=== PATIENT | female | born 1985 | race American Indian/Alaskan Native ===

== ENCOUNTER 2016-03-31 12:46 | Inpatient (IN) | payer OTHER ==
[2016-03-31] MEDS ORDERED: CATAPRES PO ONE (13:39)
--- NOTE | 2016-03-31 13:41 | Emergency Department Report ---
Chief Complaint: Alcohol Stated Complaint: ALCOHOL POISONING Time Seen by Provider: 03/31/16 13:35 - HPI History of Present Illness: 31-year-old female comes in for complaint of nausea vomiting up blood, she reports throat pain and headache as well as abdominal pain. Patient was recently told she has hypertension about 6 months ago and has not been taking any medication for this. Evaluation triage showed her blood pressure 217/159. - Exam Vital Signs: Vital Signs 03/31/16 12:58 Temperature 98.4 F Pulse Rate 93 H Respiratory 20 Rate Blood Pressure 217/159 O2 Sat by Pulse 99 Oximetry MSE screening note: Focused history and physical exam performed. Due to findings the following was ordered: ED Disposition for MSE Condition: Stable
[2016-03-31 14:02] LABS: Eosinophils % (Auto) 0.5 % (0.0-4.3); Hematocrit 43.2 % (30.3-42.9); Hemoglobin 14.6 gm/dl (10.1-14.3); Mean Corpuscular HGB Conc 34 % (30-34); Mean Corpuscular Hemoglobin 30 pg (28-32); Mean Corpuscular Volume 87 fl (79-97); Platelet Count 356 K/mm3 (140-440); Red Blood Count 4.96 M/mm3 (3.65-5.03); Red Cell Distribution Width 14.1 % (13.2-15.2); White Blood Count 10.2 K/mm3 (4.5-11.0)
[2016-03-31 14:26] LABS: Alanine Aminotransferase 16 units/L (7-56); Alkaline Phosphatase 76 units/L (35-129); Anion Gap 18 mmol/L; Bilirubin,Direct < 0.2 mg/dL (0-0.2); Bilirubin,Indirect 0.5 mg/dL; Bilirubin,Total 0.7 mg/dL (0.1-1.2); Blood Urea Nitrogen 13 mg/dL (7-17); Calcium 8.7 mg/dL (8.4-10.2); Carbon Dioxide 26 mmol/L (22-30); Chloride 101.8 mmol/L (98-107); Glucose 126 mg/dL (65-100); Sodium 142 mmol/L (137-145); Total Protein 7.9 g/dL (6.3-8.2)
--- NOTE | 2016-03-31 15:58 | Ultrasound Report ---
RIGHT UPPER QUADRANT ULTRASOUND: The gallbladder is sonolucent with no evidence of stones, polyps or wall thickening. The common duct is normal in caliber. The pancreas, right renal contour, parenchyma and hepatic parenchyma appear normal. IMPRESSION: Normal right upper quadrant ultrasound.
[2016-03-31] MEDS ORDERED: PEPCID IV ONE (16:10)
[2016-03-31] MEDS ORDERED: NACL 0.9% 1000 ML 1,000 ML IV ONE ×2 (16:10→18:12)
[2016-03-31] MEDS ORDERED: MORPHINE IV ONE (16:10)
[2016-03-31] MEDS ORDERED: ZOFRAN IV ONE ×2 (16:10→19:56)
--- NOTE | 2016-03-31 16:15 | Emergency Department Report ---
ED Alcohol HPI - General Chief Complaint: Alcohol Stated Complaint: ALCOHOL POISONING Time Seen by Provider: 03/31/16 13:35 Source: patient Mode of arrival: Ambulatory Limitations: No Limitations - History of Present Illness Initial Comments: 31-year-old female with a past medical history hypertension diagnosed 6 months ago presents to the hospital complaining of nausea, vomiting, headache, and abdominal pain after drinking alcohol last night. Patient also states she had pseudotumor cerebra has been treated with multiple LPs in the past Patient states she only typically drinks alcohol twice a year. Last night she had 3 liquor-based drinks and developed nausea vomiting or by mouth intolerance last night. Blood-tinged vomitus reported. Patient complains of associated headache , epigastric discomfort which is described as aching and occasionally burning. Overall pain rated 8/10 in intensity. No reports of melena, hematochezia, diarrhea, or fever. Headache is frontal in the top of her head - Related Data Home Medications Medication Instructions Recorded Confirmed Last Taken No Known Home Medications [No 03/31/16 03/31/16 Unknown Reported Home Medications] Allergies Allergy/AdvReac Type Severity Reaction Status Date / Time methotrexate Allergy Hives Verified 03/31/16 12:58 ED Review of Systems ROS: Stated complaint: ALCOHOL POISONING Other details as noted in HPI Comment: All other systems reviewed and negative Other: Constitutional: No fevers chills Eyes: No eye pain visual changes ENT: No ear pain or throat pain Neck: Denies pain Respiratory: Denies cough wheezing shortness of breath Cardiovascular: Denies chest pain, palpitations, syncope GI: As per HPI : Denies dysuria, urinary frequency, or urgency Musculoskeletal: Denies back pain, joint swelling Skin: Denies rash, lesions, erythema Neurologic: Denies numbness, weakness Psychiatric: Denies suicidal ideation, hallucinations ED Past Medical Hx - Past Medical History Previous Medical History?: Yes Additional medical history: psoriasis, pseudo tumors, multiple spinal taps - Surgical History Past Surgical History?: Yes Hx Appendectomy: Yes - Social History Smoking Status: Former Smoker Substance Use Type: Alcohol, Marijuana, Non Opiate Pain - Medications Home Medications: Home Medications Medication Instructions Recorded Confirmed Last Taken Type No Known Home Medications [No 03/31/16 03/31/16 Unknown History Reported Home Medications] ED Physical Exam - General Limitations: No Limitations - Other Other exam information: General: No limitations, patient is alert in no acute distress Head exam: Atraumatic, normocephalic Eyes exam: Normal appearance, pupils equal reactive to light, extraocular movements intact ENT: Moist mucous membrane, normal oropharynx Neck exam: Normal inspection, full range of motion, no meningismus nontender Respiratory exam: Clear to auscultation bilateral, no wheezes, rales, crackles Cardiovascular: Normal rate and rhythm, normal heart sounds Abdomen: Soft, nondistended, mild epigastric right upper quadrant tenderness, with normal bowel sounds, no rebound, or guarding Extremity: Full range of motion normal inspection no deformity Back: Normal Inspection, full range of motion, no tenderness Neurologic: Alert, oriented x3, cranial nerves intact, no motor or sensory deficit Psychiatric: normal affect, normal mood Skin: Warm, dry, intact ED Course Vital Signs 03/31/16 03/31/16 03/31/16 12:58 15:10 15:46 Temperature 98.4 F Pulse Rate 93 H 82 88 Respiratory 20 19 Rate Blood Pressure 217/159 217/159 Blood Pressure [Left] O2 Sat by Pulse 99 Oximetry 03/31/16 03/31/16 03/31/16 16:00 16:04 16:06 Temperature 97.1 F L Pulse Rate 85 84 84 Respiratory 25 H 18 12 Rate Blood Pressure 223/140 249/165 Blood Pressure 223/140 [Left] O2 Sat by Pulse 100 100 100 Oximetry 03/31/16 03/31/16 03/31/16 16:08 16:23 16:50 Temperature Pulse Rate 79 79 95 H Respiratory 14 Rate Blood Pressure 261/173 256/150 204/117 Blood Pressure [Left] O2 Sat by Pulse 100 Oximetry 03/31/16 03/31/16 03/31/16 16:52 17:00 17:20 Temperature 98.5 F Pulse Rate 93 H 95 H 106 H Respiratory 18 16 18 Rate Blood Pressure Blood Pressure 204/117 204/117 178/105 [Left] O2 Sat by Pulse 98 98 99 Oximetry 03/31/16 03/31/16 03/31/16 17:49 18:00 19:02 Temperature 98.1 F Pulse Rate 110 H 110 H 117 H Respiratory 16 20 Rate Blood Pressure 205/121 Blood Pressure 180/96 205/124 [Left] O2 Sat by Pulse 99 99 Oximetry 03/31/16 03/31/16 19:18 19:40 Temperature Pulse Rate 101 H 97 H Respiratory 16 18 Rate Blood Pressure Blood Pressure 194/123 208/145 [Left] O2 Sat by Pulse 100 99 Oximetry - Reevaluation(s) Reevaluation #1: 03/31/16 16:17 Patient see Catapres 0.2 mg prior to my evaluation. BP remains elevated. Reevaluation #2: 03/31/16 19:50 Patient received hydralazine of the heart rate increased with temporary reduction in blood pressure. [facility] Labetalol 20 ordered. Patient also received Dilaudid 1 mg for pain and continues to be elevated. Patient states her GI symptoms are improved with treatment 03/31/16 19:51 ED Medical Decision Making - Lab Data Result diagrams: 03/31/16 13:54 03/31/16 13:54 Lab Results 03/31/16 03/31/16 03/31/16 Range/Units 13:54 13:54 18:12 WBC 10.2 (4.5-11.0) K/mm3 RBC 4.96 (3.65-5.03) M/mm3 Hgb 14.6 H (10.1-14.3) gm/dl Hct 43.2 H (30.3-42.9) % MCV 87 (79-97) fl MCH 30 (28-32) pg MCHC 34 (30-34) % RDW 14.1 (13.2-15.2) % Plt Count 356 (140-440) K/mm3 Lymph % (Auto) 12.8 L (13.4-35.0) % [place] % (Auto) 3.9 (0.0-7.3) % Eos % (Auto) 0.5 (0.0-4.3) % Baso % (Auto) 1.0 (0.0-1.8) % Lymph # 1.3 (1.2-5.4) K/mm3 [place] # 0.4 (0.0-0.8) K/mm3 Eos # 0.1 (0.0-0.4) K/mm3 Baso # 0.1 (0.0-0.1) K/mm3 Seg Neutrophils % 81.8 H (40.0-70.0) % Seg Neutrophils # 8.3 H (1.8-7.7) K/mm3 Sodium 142 (137-145) mmol/L Potassium 4.0 (3.6-5.0) mmol/L Chloride 101.8 (98-107) mmol/L Carbon Dioxide 26 (22-30) mmol/L Anion Gap 18 mmol/L BUN 13 (7-17) mg/dL Creatinine 1.0 (0.7-1.2) mg/dL Estimated GFR > 60 ml/min BUN/Creatinine Ratio 13.00 % Glucose 126 H (65-100) mg/dL Calcium 8.7 (8.4-10.2) mg/dL Total Bilirubin 0.7 (0.1-1.2) mg/dL Direct Bilirubin < 0.2 (0-0.2) mg/dL Indirect Bilirubin 0.5 mg/dL AST 23 (5-40) units/L ALT 16 (7-56) units/L Alkaline Phosphatase 76 (35-129) units/L Total Protein 7.9 (6.3-8.2) g/dL Albumin 4.0 (3.9-5) g/dL Albumin/Globulin Ratio 1.0 % Urine Color Yellow (Yellow) Urine Turbidity Clear (Clear) Urine pH 7.0 (5.0-7.0) Ur Specific [place] 1.020 (1.003-1.030) Urine Protein 100 mg/dl (Negative) mg/dL Urine Glucose (UA) 50 (Negative) mg/dL Urine Ketones Tr (Negative) mg/dL Urine Blood Neg (Negative) Urine Nitrite Neg (Negative) Ur Reducing Substances Not Reportable Urine Bilirubin Neg (Negative) Urine Ictotest Not Reportable Urine Urobilinogen < 2.0 (<2.0) mg/dL Ur Leukocyte Esterase Neg (Negative) Urine WBC (Auto) 2.0 (0.0-6.0) /HPF Urine RBC (Auto) 2.0 (0.0-6.0) /HPF U Epithel Cells (Auto) 7.0 (0-13.0) /HPF Urine Mucus 1+ /HPF Urine HCG, Qual Negative (Negative) - Radiology Data Radiology results: report reviewed (ct head: naf) - Medical Decision Making Patient persistently elevated blood pressure despite by mouth and IV medication. She also complains of headache which could be due to pseudotumor cerebri but associated with short hypertension. Patient admitted to the hospital for further management of blood pressure and transitioned to effective medication. - Differential Diagnosis alcohol gastritis, cholelithiasis, dehydration, pancreatitis, htn silas Critical Care Time: No Critical care attestation.: If time is entered above; I have spent that time in minutes in the direct care of this critically ill patient, excluding procedure time. ED Disposition Clinical Impression: Uncontrolled hypertension, Acute alcoholic gastritis without hemorrhage, Noncompliance with medication regimen, Headache, Obesity, Pseudotumor cerebri Disposition: OP ADMITTED IP TO THIS HOSP Is pt being admited?: Yes Condition: Stable Time of Disposition: 19:55 (Dr Dowell/hosp)
[2016-03-31] MEDS ORDERED: APRESOLINE IV ONE ×2 (16:16→16:57)
--- NOTE | 2016-03-31 16:42 | Admit Criteria Form ---
Admission Criteria Documentation: HYPERTENSION Clinical Indications for Admission to Inpatient Care ( Place "X" for any and all applicable criteria): Admission is indicated for ANY ONE of the following(1)(2)(3)(4): [ ]I. Hypertensive emergency, with evidence of acute and progressing target organ disease as indicated by ANY ONE of the following: [ ]a) Hypertensive encephalopathy (eg, confusion, altered mental status) [ ]b) Cerebral infarction [ ]c) Intracranial hemorrhage [ ]d) Myocardial ischemia or infarction [ ]e) Pulmonary edema [ ]f) Aortic dissection [ ]g) Seizure [ ]h) Acute renal insufficiency [ ]i) Papilledema [ ]j) Microangiopathic hemolytic anemia [ ]II. Adrenergic crisis (eg, severe hypertension due to pheochromocytoma crisis, cocaine or amphetamine intoxication, or clonidine withdrawal) [X]III. Severe hypertension (SBP greater than 180 mmHg or DBP greater than 110 mmHg or greater than the 95th percentile for age, gender, and height in pediatric patients) that cannot be controlled (eg, to SBP less than 160 mmHg and DBP less than 100 mmHg in adults) by treatment with oral medication in emergency department or observation care Extended stay beyond goal length of stay may be needed for(11)(12)(13): [ ]a) Persistent hypertensive encephalopathy [ ]b) Continuation of pulmonary edema [ ]c) Recurring or persistent severe hypertension [ ]d) Target organ damage (eg, angina, stroke, aortic dissection) [ ]e) Associated renal insufficiency The original [employer] content created by [employer] has been revised. The portions of the content which have been revised are identified through the use of italic text or in bold, and [facility] has neither reviewed nor approved the modified material. All other unmodified content is copyright [employer] [facility]. Please see references footnoted in the original [employer] [facility] edition 2016 Admission Criteria Met: Yes
[2016-03-31] MEDS ORDERED: NORMODYNE IV ONE ×2 (18:12→19:38)
[2016-03-31] MEDS ORDERED: DILAUDID IV ONE (18:45)
[2016-03-31 19:01] LABS: Bilirubin,Urine NEG (Negative); Blood,Urine NEG (Negative); Ketones,Urine TR mg/dL (Negative); Leukocyte Esterase,Urine NEG (Negative); Mucus,Urine 1+ /HPF; Nitrite,Urine NEG (Negative); Urobilinogen,Urine < 2.0 mg/dL (<2.0)
--- NOTE | 2016-03-31 19:48 | Cat Scan Report ---
FINAL REPORT EXAM: CT HEAD/BRAIN WO CON HISTORY: alves htn TECHNIQUE: CT head without contrast PRIORS: None. FINDINGS: No acute intra-axial or extra-axial hemorrhage is identified. There is no evidence of midline shift or mass effect. The ventricles and sulci are within normal limits. Coates-white matter differentiation is intact. No acute parenchymal abnormalities seen. Bony calvarium is grossly intact. Visualized portions of the mastoids and paranasal sinuses are unremarkable. IMPRESSION: Negative CT head
--- NOTE | 2016-03-31 22:51 | Event Note ---
Date: 03/31/16 See H/p in reports Htn emergency Obesity
[2016-03-31] MEDS ORDERED: AMBIEN PO PRN (22:52)
[2016-03-31] MEDS ORDERED: DILAUDID IV PRN (22:52)
[2016-03-31] MEDS ORDERED: MILK OF MAGNESIA PO PRN (22:52)
[2016-03-31] MEDS ORDERED: TYLENOL PO PRN (22:52)
[2016-03-31] MEDS ORDERED: ZOFRAN IV PRN (22:52)
[2016-03-31] MEDS ORDERED: DULCOLAX PR PRN (22:52)
[2016-03-31] MEDS ORDERED: APRESOLINE ONE (23:40)
[2016-03-31] MEDS ORDERED: PROTONIX IV ONE (23:40)
[2016-03-31] MEDS: COREG PO SCH (23:52)
[2016-03-31] MEDS: PROTONIX IV SCH (23:52)
[2016-04-01] MEDS: APRESOLINE IV PRN
[2016-04-01] MEDS ORDERED: CARDENE DRIP 40 MG/200 ML 200 ML ONE (00:42)
--- NOTE | 2016-04-01 00:45 | History and Physical Report ---
CHIEF COMPLAINT: 1. Nausea, vomiting, and headache. 2. Abdominal pain after drinking alcohol last night. HISTORY OF PRESENT ILLNESS: A 31-year-old -[place] male with history of hypertension and obesity, but noncompliant, comes in for nausea, vomiting, headache, and abdominal pain after drinking alcohol last night. She had 3 liquor based drinks and developed nausea, vomiting, and GI intolerance last night. Blood tinge vomitus reported. Complains of associated epigastric discomfort. No hematemesis. No hematochezia. No melena. Here in the ER, the patient was found to have a very high blood pressure. The patient was diagnosed with high blood pressure, but not taking her medications ____ noncompliant ____. PAST MEDICAL HISTORY: Significant for: 1. Hypertension. 2. Psoriasis. 3. Pseudotumor cerebri. Multiple spinal taps for pseudotumor cerebri. PAST SURGICAL HISTORY: Appendectomy. SOCIAL HISTORY: Former smoker, stopped smoking about 3 to 4 years ago. SUBSTANCE ABUSE: Uses alcohol and marijuana on an intermittent basis. FAMILY HISTORY: Significant for hypertension. CURRENT MEDICATIONS: None. REVIEW OF SYSTEMS: Significant for; CONSTITUTIONAL: No weight gain, no weight loss. HEENT: No blurred vision, no diplopia, no loss of vision. No sore throat, no post nasal drip. CARDIOVASCULAR: No chest pain, no palpitations, no shortness of breath. RESPIRATORY SYSTEM: No cough, no hemoptysis. GASTROINTESTINAL: Epigastric pain present. One episode of vomiting with blood tinged vomit. No hematemesis. No bright red blood per rectum. No excessive gas. GENITOURINARY SYSTEM: No dysuria, no flank pain. MUSCULOSKELETAL SYSTEM: No neck pain, no morning stiffness, no muscle weakness. INTEGUMENTARY: No rash, no pruritus, no redness. NEUROLOGIC: No syncope, no seizures. No focal deficits. PSYCHIATRIC: No depression. No change in appetite. No suicidal ideation. ENDOCRINE: No cold intolerance or heat intolerance. No polyphagia. HEMATOLOGIC AND LYMPHATIC: No easy bruising. No easy bleeding. ALLERGIC AND IMMUNOLOGIC: No urticaria, no allergic rhinitis. PHYSICAL EXAMINATION: GENERAL: Young female lying in bed comfortably. VITAL SIGNS: Initial blood pressure was 208/145, 194/123, and 205/121; pulse was 117, sats of 99%, respiratory rate is 16. HEENT: Unremarkable. Pupils equal and reactive. NECK: Supple. No lymphadenopathy, no thyromegaly. LUNGS: Clear to auscultation and percussion. Good air entry. CARDIOVASCULAR: S1, S2 heard. No gallop, no murmur, no rub. Apical impulse in left fifth intercostal space and midclavicular line. ABDOMEN: Soft and benign. No epigastric tenderness present. No guarding, no rigidity. Hernial orifices are normal. EXTREMITIES: Good pedal pulses. No pedal edema. CENTRAL NERVOUS SYSTEM: No syncope, no seizures. DIAGNOSTIC DATA: EKG not done. Radiology results, CT of the head, no abnormal findings. In the ED, also electrolytes were normal. Glucose slightly high 126, H and H are 14.6 and 43.2. EMERGENCY DEPARTMENT COURSE: The patient was given labetalol 20, Dilaudid 1 mg for pain, hydralazine. Blood pressure did not come down adequately. Blood pressure is still persistently high around 160/110, hence decided to admit the patient to the hospitalist service. ASSESSMENT AND PLAN: 1. Hypertensive emergency. The patient to get hydralazine on a p.r.n. basis 10 mg ____ 3 hours or IV labetalol 20 mg ____ hours. In the meantime, the patient was started on losartan 100 mg daily, Coreg 12.5 q.12 hours, and amlodipine 10 mg daily. The patient was counseled about being compliant. The patient understands the implications of renal failure, congestive heart failure. The patient promises that she is going to take her medications regularly. Admission for controlling the blood pressure. 2. Obesity. The patient counseled about her metabolic syndrome. 3. Gastritis secondary to alcohol intake. IV Protonix 40 mg q.12 hours for the time being. 4. Deep venous thrombosis prophylaxis, Lovenox 40 mg subcutaneous daily. JOB# [id number] BON/NTS
[2016-04-01] MEDS: CARDENE DRIP 40 MG/200 ML 200 ML IV SCH ×2 (00:55→07:21)
[2016-04-01 05:17] LABS: Basophils % (Auto) 0.6 % (0.0-1.8); Eosinophils % (Auto) 0.2 % (0.0-4.3); Hematocrit 40.2 % (30.3-42.9); Hemoglobin 13.7 gm/dl (10.1-14.3); Mean Corpuscular HGB Conc 34 % (30-34); Mean Corpuscular Hemoglobin 30 pg (28-32); Mean Corpuscular Volume 87 fl (79-97); Platelet Count 348 K/mm3 (140-440); Red Cell Distribution Width 14.1 % (13.2-15.2); White Blood Count 13.4 K/mm3 (4.5-11.0)
[2016-04-01 05:20] LABS: Alanine Aminotransferase 16 units/L (7-56); Albumin 3.9 g/dL (3.9-5); Albumin/Globulin Ratio 1.1 %; Alkaline Phosphatase 67 units/L (35-129); Bilirubin,Total 0.7 mg/dL (0.1-1.2); Blood Urea Nitrogen 13 mg/dL (7-17); Calcium 8.5 mg/dL (8.4-10.2); Carbon Dioxide 25 mmol/L (22-30); Glucose 131 mg/dL (65-100); Potassium 3.8 mmol/L (3.6-5.0); Sodium 141 mmol/L (137-145); Total Protein 7.4 g/dL (6.3-8.2)
[2016-04-01 05:26] LABS: Anion Gap 19 mmol/L
[2016-04-01] MEDS: PERCOCET 5/325 PO PRN (07:45)
[2016-04-01] MEDS: COZAAR PO SCH (10:25)
[2016-04-01] MEDS: NORVASC PO SCH (10:26)
[2016-04-01] MEDS: PROTONIX IV SCH (10:30)
[2016-04-01] MEDS: COREG PO SCH (11:57)
--- NOTE | 2016-04-01 13:19 | Progress Note ---
Assessment and Plan Assessment and plan: 1. Accelerated hypertension. We will wean Cardene drip and began by mouth medications. Patient will be started on losartan, Coreg and Norvasc. 2. Morbid obesity. Patient was counseled regarding metabolic syndrome. 3. Gastritis. Continue Protonix IV. 4. Pseudotumor cerebri. Continue supportive care. 5. DVT prophylaxis. Continue Lovenox. History Interval history: Patient currently denies any headache. No new issues overnight. Hospitalist Physical - Constitutional Vitals: Temp Pulse Resp BP Pulse Ox 98.3 F 97 H 28 H 144/91 98 04/01/16 07:40 04/01/16 11:45 04/01/16 11:45 04/01/16 11:45 04/01/16 11:45 General appearance: Present: no acute distress, well-nourished - EENT Eyes: Present: PERRL, EOM intact ENT: hearing intact, clear oral mucosa, dentition normal - Neck Neck: Present: supple, normal ROM - Respiratory Respiratory effort: normal Respiratory: bilateral: CTA - Cardiovascular Rhythm: regular Heart Sounds: Present: S1 & S2. Absent: gallop, rub - Extremities Extremities: no ischemia, No edema, Full ROM - Abdominal General gastrointestinal: soft, non-tender, non-distended, normal bowel sounds - Integumentary Integumentary: Present: clear, warm, dry - Neurologic Neurologic: CNII-XII intact, moves all extremities Results - Labs CBC & Chem 7: 04/01/16 04:41 04/01/16 04:41 Labs: Laboratory Last Values WBC 13.4 K/mm3 (4.5-11.0) H 04/01/16 04:41 RBC 4.60 M/mm3 (3.65-5.03) 04/01/16 04:41 Hgb 13.7 gm/dl (10.1-14.3) 04/01/16 04:41 Hct 40.2 % (30.3-42.9) 04/01/16 04:41 MCV 87 fl (79-97) 04/01/16 04:41 MCH 30 pg (28-32) 04/01/16 04:41 MCHC 34 % (30-34) 04/01/16 04:41 RDW 14.1 % (13.2-15.2) 04/01/16 04:41 Plt Count 348 K/mm3 (140-440) 04/01/16 04:41 Lymph % (Auto) 12.4 % (13.4-35.0) L 04/01/16 04:41 [place] % (Auto) 5.0 % (0.0-7.3) 04/01/16 04:41 Eos % (Auto) 0.2 % (0.0-4.3) 04/01/16 04:41 Baso % (Auto) 0.6 % (0.0-1.8) 04/01/16 04:41 Lymph # 1.7 K/mm3 (1.2-5.4) 04/01/16 04:41 [place] # 0.7 K/mm3 (0.0-0.8) 04/01/16 04:41 Eos # 0.0 K/mm3 (0.0-0.4) 04/01/16 04:41 Baso # 0.1 K/mm3 (0.0-0.1) 04/01/16 04:41 Seg Neutrophils % 81.8 % (40.0-70.0) H 04/01/16 04:41 Seg Neutrophils # 11.0 K/mm3 (1.8-7.7) H 04/01/16 04:41 Sodium 141 mmol/L (137-145) 04/01/16 04:41 Potassium 3.8 mmol/L (3.6-5.0) 04/01/16 04:41 Chloride 101.0 mmol/L (98-107) 04/01/16 04:41 Carbon Dioxide 25 mmol/L (22-30) 04/01/16 04:41 Anion Gap 19 mmol/L 04/01/16 04:41 BUN 13 mg/dL (7-17) 04/01/16 04:41 Creatinine 1.0 mg/dL (0.7-1.2) 04/01/16 04:41 Estimated GFR > 60 ml/min 04/01/16 04:41 BUN/Creatinine Ratio 13.00 % 04/01/16 04:41 Glucose 131 mg/dL (65-100) H 04/01/16 04:41 Hemoglobin A1c 5.9 % (4-6) 04/01/16 00:17 Calcium 8.5 mg/dL (8.4-10.2) 04/01/16 04:41 Total Bilirubin 0.7 mg/dL (0.1-1.2) 04/01/16 04:41 Direct Bilirubin < 0.2 mg/dL (0-0.2) 03/31/16 13:54 Indirect Bilirubin 0.5 mg/dL 03/31/16 13:54 AST 21 units/L (5-40) 04/01/16 04:41 ALT 16 units/L (7-56) 04/01/16 04:41 Alkaline Phosphatase 67 units/L (35-129) 04/01/16 04:41 Total Protein 7.4 g/dL (6.3-8.2) 04/01/16 04:41 Albumin 3.9 g/dL (3.9-5) 04/01/16 04:41 Albumin/Globulin Ratio 1.1 % 04/01/16 04:41 Urine Color Yellow (Yellow) 03/31/16 18:12 Urine Turbidity Clear (Clear) 03/31/16 18:12 Urine pH 7.0 (5.0-7.0) 03/31/16 18:12 Ur Specific [place] 1.020 (1.003-1.030) 03/31/16 18:12 Urine Protein 100 mg/dl mg/dL (Negative) 03/31/16 18:12 Urine Glucose (UA) 50 mg/dL (Negative) 03/31/16 18:12 Urine Ketones Tr mg/dL (Negative) 03/31/16 18:12 Urine Blood Neg (Negative) 03/31/16 18:12 Urine Nitrite Neg (Negative) 03/31/16 18:12 Ur Reducing Substances Not Reportable 03/31/16 18:12 Urine Bilirubin Neg (Negative) 03/31/16 18:12 Urine Ictotest Not Reportable 03/31/16 18:12 Urine Urobilinogen < 2.0 mg/dL (<2.0) 03/31/16 18:12 Ur Leukocyte Esterase Neg (Negative) 03/31/16 18:12 Urine WBC (Auto) 2.0 /HPF (0.0-6.0) 03/31/16 18:12 Urine RBC (Auto) 2.0 /HPF (0.0-6.0) 03/31/16 18:12 U Epithel Cells (Auto) 7.0 /HPF (0-13.0) 03/31/16 18:12 Urine Mucus 1+ /HPF 03/31/16 18:12 Urine HCG, Qual Negative (Negative) 03/31/16 18:12
--- NOTE | 2016-04-01 14:20 | Event Note ---
Date: 04/01/16 Initially requesting ICU admission for IV antihypertensive medications however has resolved and going to medical floor - will see prn
[2016-04-01] MEDS ORDERED: LOVENOX SUB-Q SCH (22:00)
[2016-04-02] MEDS: PROTONIX IV SCH (00:02)
[2016-04-02] MEDS: PERCOCET 5/325 PO PRN (00:08)
--- NOTE | 2016-04-02 09:42 | Discharge Summary ---
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 Patient was initially placed on Cardizem drip due to extremely elevated blood pressures. Patient was transitioned to her home antihypertensive regimen. Patient was weaned off the Cardizem drip and her blood pressure stabilized. Patient also complained of epigastric pain secondary to excessive alcohol intake prior to admission. Patient was treated with Protonix IV. Patient has significant improvement. Patient also complained of a headache which essentially resolved. Patient does have a history of pseudotumor cerebri. CT scan of the head was negative. Dedicated discharge time 35 minutes. Disposition: DISCHARGED TO HOME OR SELFCARE Time spent for discharge: 35 Core Measure Documentation - Palliative Care Palliative Care/ Comfort Measures: Not Applicable - Core Measures Any of the following diagnoses?: none Exam - Constitutional Vitals: Temp Pulse Resp BP Pulse Ox 98.2 F 77 20 163/111 100 04/01/16 23:04 04/02/16 00:00 04/02/16 01:08 04/02/16 00:00 04/01/16 23:55 General appearance: Present: no acute distress, well-nourished - EENT Eyes: Present: PERRL ENT: hearing intact, clear oral mucosa - Neck Neck: Present: supple, normal ROM - Respiratory Respiratory effort: normal Respiratory: bilateral: CTA - Cardiovascular Heart Sounds: Present: S1 & S2. Absent: rub, click - Extremities Extremities: pulses symmetrical, No edema Peripheral Pulses: within normal limits - Abdominal General gastrointestinal: Present: soft, non-tender, non-distended, normal bowel sounds Female genitourinary: Present: normal - Integumentary Integumentary: Present: clear, warm, dry - Musculoskeletal Musculoskeletal: gait normal, strength equal bilaterally - Psychiatric Psychiatric: appropriate mood/affect, intact judgment & insight - Neurologic Neurologic: CNII-XII intact, moves all extremities Plan Activity: no restrictions Weight Bearing Status: Full Weight Bearing Diet: low fat, low cholesterol, low salt Prescriptions: Carvedilol [Coreg] 12.5 mg PO BID #60 tablet Losartan [Cozaar] 100 mg PO QDAY #30 tablet amLODIPine [Norvasc] 10 mg PO DAILY #30 tab hydrALAZINE [Apresoline TAB] 25 mg PO Q8HR #90 tab oxyCODONE /ACETAMINOPHEN [Percocet 5/325 mg] 1 tab PO Q6H PRN #30 tablet PRN Reason: Pain, Moderate (4-6)
[2016-04-02] MEDS ORDERED: PEPCID PO SCH (10:00)
[2016-04-02] MEDS: COZAAR PO SCH (10:55)
[2016-04-02] MEDS: NORVASC PO SCH (10:56)
[2016-04-02] MEDS: APRESOLINE IV PRN (10:56)
[2016-04-02] MEDS: COREG PO SCH ×2 (10:56)
[2016-04-02 18:22] VITALS: BP 140/80
== END 2016-04-02 19:40 | disposition home or self-care (01) | DRG 392 ==
LOC: ED 12:46 → 3A 22:52 → CC1 04-01 01:06 → 4A 04-01 13:18 → 3A 04-01 19:16
PROVIDERS: ADMIT Internal Medicine; ATTEND Hospitalist
DX: K29.20 Alcoholic gastritis without bleeding (principal); I16.1 Hypertensive emergency; Z68.43 Body mass index [BMI] 50.0-59.9, adult; E66.01 Morbid (severe) obesity due to excess calories; G93.2 Benign intracranial hypertension; I10 Essential (primary) hypertension; L40.9 Psoriasis, unspecified; F12.90 Cannabis use, unspecified, uncomplicated; F10.10 Alcohol abuse, uncomplicated; Z71.3 Dietary counseling and surveillance; Z88.8 Allergy status to other drugs, medicaments and biological substances; Z98.890 Other specified postprocedural states; Z90.49 Acquired absence of other specified parts of digestive tract; Z87.891 Personal history of nicotine dependence; Z91.14 Patient's other noncompliance with medication regimen; Z82.49 Family history of ischemic heart disease and other diseases of the circulatory system
CPT/HCPCS: 36415; 70450; 76705; 80048; 80053; 80074; 81001; 81025; 83036; 85025; 96361; 96365; 96375; 96376; C9113; J0360; J1170; J1650; J2270; J2405; J7030